=== PATIENT | female | born 1970 | race Caucasian/White ===

== ENCOUNTER → 2016-10-30 | Day surgery (SDC) | payer OTHER ==
[~2016-10-30] VITALS: Ht 170.2 cm; Wt 174.6 kg
[~2016-10-30] MED LIST: ALBU8.5H2 INHALATION; CYCL10TA9 PO; Dexamethasone 4 mg/mL Inj ONE; FLUT16SP NS; FUR20 PO; IBUP800T28 PO; Ketamine 10 mg/mL 20 mL Inj ONE; Lactated Ringer's 1,000 ML IV ONE; Lactated Ringer's 1,000 ML IV SCH; MELO-253 PO; MetoCLOpramide 5 mg/mL 2 mL Inj IVPUSH PRN; OMEP20CA11 PO; Ondansetron 2 mg/mL 2 mL Inj IVPUSH PRN; Ondansetron 2 mg/mL 2 mL Inj ONE; POTA10TA12 PO; Propofol 10,000 mCg/mL 20 mL Inj ONE
--- NOTE | 2016-10-30 07:43 | PCM.HPANE ---
Patient Data Surgeon Admitting Provider: Attending Provider:Ye Bush MD Primary Care Physician:Maureen Prasad PA-C Other Provider:Phong Hyman Anesthesia Reason for Visit Bowel Habit Changes, Dyspepsia Ht/WT & BMI Body Mass Index Allergies Coded Allergies: codeine (Verified Allergy, Severe, ITCH, 06/09/15) morphine (Verified Allergy, Severe, ITCH, 06/09/15) oxycodone (Verified Allergy, Unknown, UNKNOWN, 06/09/15) promethazine (Verified Allergy, Unknown, UNKNOWN, 06/09/15) Uncoded Allergies: CONTRAST DYE (Allergy, Severe, HEADACHES, 06/19/12) Past Anesthesia History Anesthesia History: Positive for:: Anesthesia Reactions (some nausea ), Denies:: Abnormal Airway, Difficult Intubation, Fam Anesthesia Reaction, Fam Malignant Hypertherm, Malignant Hyperthermia Diabetes History Hx Diabetes?: No MRSA MRSA: No Medications Hypertension Medication: Yes Home Meds Incl Beta Leidy: No Reported Medications Albuterol HFA (Proair HFA)8.5 Gm Hfa.aer.ad2 Puffs INHALATION Q4H #1 INHALER 10/26/16 Potassium Chloride ER 10 Meq Njrflg27 Meq PO DAILY Ref 0 TAKE WITH FOOD 10/26/16 Omeprazole 20 Mg Capsule.dr20 Mg PO DAILY Ref 0 10/26/16 Meloxicam 15 Mg Swzelx67 Mg PO DAILY 30 Days Ref 0 10/26/16 Ibuprofen 800 Mg Sroawa672 Mg PO TID PRN For Pain Ref 0 10/26/16 Furosemide 20 Mg Tab20 Mg PO DAILY 30 Days Ref 0 10/26/16 Fluticasone Propionate (Fluticasone Propionate Nasal)16 Gm [place].susp1 [place] NS BID #16 GM Ref 0 10/26/16 Cyclobenzaprine 10 Mg Yrchfm18 Mg PO HS PRN Spasm Ref 0 10/26/16 Discontinued Reported Medications Hydrocod/APAP-Expunged, Do Not Renew! (Hydrocod/APAP 5/500-Expunged, Do Not Renew!)1 Each Tablet1 Each PO Q 4-6HRS PRN 06/19/12 Discontinued Scripts Hydromorphone 2 Mg Tablet2 Mg PO Q4H PRN Pain #14 TABLET Ref 0 Prov:Demetrio Parikh MD 06/09/15 History History of ENT Problems?: No HEENT History: Denies:: Abnormal Airway Difficult Intubation Dysphagia Hearing Problem Denture Type: None Teeth Condition: Within Normal Limits Hx of Heart Problems?: No Cardiovascular History: Positive for:: Hypertension Hx of Respiratory Problem?: No Respiratory History: Denies:: Tuberculosis Use of C-PAP Machine Hx Neurologic Problems?: No Neurological History: Denies:: CVA Dementia Hx of GI Problems?: Yes Hx of Problems?: No Female Hx: Denies:: Currently Pelvic Inflammatory (ABD PAIN/LT OVARIAN CYST=CURRENT PROBLEM) Skin History: Denies:: History Skin Disorders? Pressure Ulcers Hx Musculoskeletal Problems?: Yes Musculoskeletal History: Denies:: Joint Replacement Hx of Psycho/Social Problems?: Yes Psycho Social History: Positive for:: Anxiety Hx Depression Hx Surgeries?: Yes (HYST,RT SALPINGO-OOPHORECTOMY,BHAVANI,APPY,HERNIA RPR) Hx Any Other Health Problems?: Yes Other History: Denies:: Endocrine Disease Hospitalization Thyroid Disease History Blood Transfusions: Denies:: Blood Transfusions Hx Diabetes: No Hx Alcohol Use: Yes (occ)Hx Substance Use: No Smoking Status: Never Smoker Have You Smoked inLast 12 mo: No Stop/Bang Treated for Sleep Apnea?: No Do You Have a CPAP Machine?: No S-Snoring: Do You Snore Loudly: No T-Tired: feel tired, fatigued: No O-Obsered: Observed not breath: No P-Blood Pressure: treated: Yes B- Body Mass Index > 35 kg/m2: Yes A- Age over 50: No N- Neck Large Circumference: Yes G- Gender Male: No DELIA Category 4 OutPt Procedure: Yes Risk Assessment Category Category 1A: Patient has history of documented sleep apnea, and HAS NOT received any narcotic, sedative or anesthesia administration during this stay. Category 1B: Patient has history of documented sleep apnea, and HAS received any narcotic , sedative or anesthesia administration during this stay Category 2: Patient has SUSPECTED Obstructive Sleep Apnea, and HAS received any narcotic , sedative or anesthesia administration during this stay. Category 3: Patient has SUSPECTED Obstructive Sleep Apnea and HAS NOT received narcotic, sedative or anesthesia administration during this stay. Category 4: Outpatient in Procedural Areas with known sleep apnea or who screen positive for High Risk via the STOP/BANG questionnaire. Exam Exam General Appearance: Alert, Oriented X3, Cooperative, No Acute Distress HEENT/AIRWAY: MP 2 Lungs: Clear to Auscultation, Normal Air Movement Heart: Exam Unremarkable, Regular Rate/Rhythm, No Murmurs/Rubs/Gallops Plan Impression Patient chart reviewed, patient interviewed and anesthestic plan with risks, benefits, and alternatives discussed, and informed consent obtained. NPO per Anesth. Guidelines: Yes ASA Physical Status: ASA3 Severe Disease (BMI 60) Anesthetic Plan: MAC Bene/Risks/Altern/Consents: Yes HP Complete Prior to Induction: Yes Omer Merida MD Oct 30, 2016 07:43
[2016-10-30 11:39] VITALS: BP 142/77; PULSE 59; RESP 16; O2SAT 100
[2016-10-30 13:14] VITALS: BP 119/68; PULSE 68; RESP 16; O2SAT 96
[2016-10-30 13:24] VITALS: BP 111/59; PULSE 62; RESP 16; O2SAT 96
[2016-10-30 13:34] VITALS: BP 108/69; PULSE 59; RESP 16; O2SAT 99
[2016-10-30 13:45] VITALS: BP 121/70; PULSE 58; RESP 16; O2SAT 99
--- NOTE | 2016-10-30 15:18 | ENDO ---
[address] [address] ENDOSCOPY PROCEDURE PATIENT: DAGO SOTO : 1970 MR#: [id number] ADMIT: 10/30/2016 JOB ID: [id number] DATE: 10/30/2016 PRIMARY PROVIDER: Maureen Prasad PROCEDURE: 1. Esophagogastroduodenoscopy with biopsy. 2. Colonoscopy with biopsies. INDICATIONS: A 46-year-old female with multifocal abdominal pain, dyspepsia, change in bowel habit. Repeat endoscopic assessment including EGD is pursued. EQUIPMENT: GIF H 180 and a PCF H 180 AL. SEDATION: Monitored anesthesia as provided by Dr. Omer Merida. COMPLICATIONS: None identified. BOWEL PREPARATION: Fair, adequate examination. PROCEDURAL INFORMATION: After the risks and benefits were explained, written and verbal informed consent was obtained. The patient was brought into the endoscopy suite and placed into the left lateral decubitus position. Sedation was achieved using the above-stated medications with the addition of oxygen via nasal cannula. The scope was introduced into the mouth through the bite block, and advanced to the second portion of the duodenum. The scope was slowly withdrawn to carefully examine the mucosa for any defects or lesions. Retroflexed views were accomplished in the stomach. The stomach was decompressed. The scope removed from the patient who tolerated the procedure well. The patient was then turned around. A digital rectal examination was accomplished. Mild internal external nonbleeding, nonthrombosed hemorrhoids were noted. No other significant pathology was appreciated throughout. The scope was introduced into the rectum and advanced to the cecum as identified by the appendiceal orifice and ileocecal valve. The terminal ileum was briefly accessed. The scope was then slowly withdrawn to carefully examine the mucosa for any defects or lesions. Multiple direct views were made through the dentate line for exclusion of pathology. The colon was decompressed. The scope removed from the patient who tolerated the procedure well. FINDINGS: 1. Duodenum: No significant pathology appreciated throughout. The patient has loose stools and constipation. We, therefore, elected to pursue random biopsies for exclusion of sprue. 2. Stomach: No ulcers, no outlet obstruction. No mass lesions. Mild gastropathy seen throughout. Random biopsy was, therefore, taken for exclusion of Helicobacter or other pathology. Retroflexed views of the LES were unremarkable. 3. Esophagus: The squamocolumnar junction correlated with the top of the gastric folds. The GEJ was at 39 cm from the incisors. No acute erosive changes. No strictures. No mass lesions. The remainder of the esophagus was unremarkable. 4. Terminal ileum: This appeared visually normal. 5. Colon: No proctocolitis seen throughout. Random colon biopsies were taken for exclusion of microscopic disease. No significant polyps or mass lesions were identified throughout either. ENDOSCOPIC DIAGNOSES: 1. Mild gastropathy. 2. Otherwise visually unremarkable esophagogastroduodenoscopy. 3. Hemorrhoids. 4. Otherwise visually unremarkable colonoscopy and terminal ileoscopy. RECOMMENDATIONS: 1. Await histopathology. 2. I encouraged continuous fiber supplementation and follow up on results in GI clinic.
--- NOTE | 2016-10-31 07:30 | PCM.ANEP1 ---
Post Anesthesia PACU Phase 1 Assessment Anesthetic Administered: MAC Level of Alertness: Awake, talking CARBAJAL's with Equal Strength: Yes Pain: No Nausea or Vomiting: No CV Function & Hydration Stable: Yes Airway Device: none Lungs: Clear to Auscultation, Normal Air Movement Dermatome Level: Full Sensation PACU Phase 2 Assessment Complications: No Follow up Care: No Patient Instructions Provided: N/A Omer Merida MD Oct 31, 2016 07:29
--- NOTE | 2016-11-02 11:41 | PATH ---
SURGICAL PATHOLOGY Attending Physician:Mitchell De La Cruz CASE STATUS: Signed Out PATIENT NAME: DAGO SOTO PID: [id number] : 1970 DATE COLLECTED:10/30/2016 00:00 SPECIMEN: Colon, Biopsy CLINICAL HISTORY: 1). RANDOM COLON BIOPSY FINAL DIAGNOSIS: Random Colon, Biopsies: Colonic mucosa with no diagnostic abnormality. Negative for active or microscopic colitis. Negative for granulomata, dysplasia or malignancy. ICD10: R10.9 GROSS DESCRIPTION: The specimen is received in one formalin filled container labeled with the patient's name, sublabeled "random colon" and consists of 3 portions of shoe which aggregate to 0.2 x 0.2 x 0.2 CM. The specimen is entirely submitted in one cassette. 10/31/2016DC ICD-9 CODES: CPT CODES: 1: 91039 Electronically Signed Out Demetrio Jacobson MD, Ph.D. [facility] Pathology [facility], [place] [address] Technical component performed at [facility], [address] [place] [address] Ave[address], [place], [address]
== END | disposition home or self-care (01) ==
LOC: END 00:21
PROVIDERS: ATTEND Internal Medicine Gastroenterology
DX: R19.4 Change in bowel habit (principal); K64.8 Other hemorrhoids; K31.9 Disease of stomach and duodenum, unspecified; G89.4 Chronic pain syndrome; E66.9 Obesity, unspecified; Z68.44 Body mass index [BMI] 60.0-69.9, adult
CPT/HCPCS: 43239; 45380; J1100; J2250; J2405; J2704; J7120